=== PATIENT | female | born 1970 | race Caucasian/White ===

== ENCOUNTER 2018-04-14 03:40 | Emergency (ER) | payer OTHER, SELFPAY ==
[2018-04-14] MEDS ORDERED: Ketorolac Tromethamine 30 MG/ML VIAL ONE (03:52)
[2018-04-14] MEDS ORDERED: HYDROcodone/Acetaminophen 10/325 mg Tablet ONE (03:59)
== END 2018-04-14 04:15 | disposition home or self-care (01) ==
LOC: BURERS 03:40
DX: S29.012A Strain of muscle and tendon of back wall of thorax, initial encounter (principal); X50.1XXA Overexertion from prolonged static or awkward postures, initial encounter
CPT/HCPCS: 96372; J1885

== ENCOUNTER 2024-03-18 16:28 | Emergency (ER) | payer OTHER, SELFPAY | END 2024-03-18 17:30 | disposition home or self-care (01) | LOC: BURERS 16:28 | DX: S90.111A Contusion of right great toe without damage to nail, initial encounter (principal); W22.8XXA Striking against or struck by other objects, initial encounter; Y93.89 Activity, other specified; Y92.69 Other specified industrial and construction area as the place of occurrence of the external cause ==